=== PATIENT | female | born 1995 | race Two or more races ===

== ENCOUNTER 2019-01-09 21:26 | Emergency (ER) | payer OTHER ==
[~2019-01-09] VITALS: Ht 165.1 cm; Wt 99.8 kg
--- NOTE | 2019-01-09 21:48 | NUR ---
STREP SWAB COMPLETE, SENT TO LAB
--- NOTE | 2019-01-09 22:27 | NUR ---
Patient discharged to home in stable conditon. Written and verbal after care instructions given. Patient verbalizes understanding of instructions. Ambulated from ER with stable gait. All belongings with patient.
[2019-01-09 22:28] VITALS: BP 131/78
== END 2019-01-09 22:29 | disposition home or self-care (01) ==
LOC: ER 21:27
DX: B34.9 Viral infection, unspecified (principal); M79.10 Myalgia, unspecified site
CPT/HCPCS: 36415; 86403; A4663